=== PATIENT | male | born 1960 | race African-American/Black ===

== ENCOUNTER 2020-05-30 18:30 | Emergency (ER) | payer OTHER ==
[~2020-05-30] VITALS: Ht 180.3 cm; Wt 95.3 kg
[~2020-05-30 18:30] MED LIST: FLEXERIL PO; NAPROSYN500 MG PO; NOHOMEMEDICATIONS; NORCO 5-325 TA1 EACH PO
[2020-05-30 20:15] LABS: ABSOLUTE NEUTROPHILS 6.1 thou/uL (1.4-8.2); BASOPHILS 0.7 % (0.0-2.0); EOSINOPHILS 3.7 % (0.0-3.0); HEMATOCRIT 39.7 % (42.0-52.0); HEMOGLOBIN 12.9 gm/dL (14.0-18.0); LYMPHOCYTES 29.2 % (24.0-44.0); MCH 28.7 pg (26.0-34.0); MCHC 32.3 g/dL (28.0-37.0); MCV 88.7 fL (80.0-100.0); MONOCYTES 9.6 % (1.0-8.0); PLATELET COUNT 312 thou/uL (150-400); POLYS 56.8 % (36.0-66.0); RBC 4.48 mil/uL (4.50-6.00); RDW 13.9 % (10.5-14.5); WBC 10.7 thou/uL (4.0-11.0)
[2020-05-30 20:35] LABS: CALCIUM 8.8 mg/dL (8.5-10.1); POTASSIUM 3.8 mmol/L (3.5-5.1)
[2020-05-30 20:49] VITALS: BP 147/85
[2020-05-30] MEDS ORDERED: PROAIR HFA8.5 GM INH (20:49)
--- NOTE | 2020-05-31 07:35 | EKG ---
[facility] [place] [address] ELECTROCARDIOGRAM REPORT Name: SLY KUO Room #: DEP [facility]#: [id number] Admission: 05/30/20 Attend Phys: Discharge: 05/30/20 Date of : 64 Report #: [id number] THIS REPORT FOR: cc: RUBENS - Dilma family physician/PCP RUBENS - Dilma family physician/PCP Bjorn Estes MD [facility] ~ THIS REPORT FOR: //name// [facility] ED Test Date: 2020-05-30 Test Time: 20:40:26 Pat Name: SLY KUO Department: Room: Gender: [facility] Shift Lead: wiley hernández : 1960 Requested By: Harry Frausto Order Number: [id number] MD: Bjorn Estes Measurements Intervals [place] Rate: 71 P: 68 DE: 180 QRS: 69 QRSD: 95 T: 45 QT: 368 QTc: 400 Interpretive Statements Sinus rhythm Q V1 only No previous ECG available for comparison Electronically Signed On 05-31-2020 7:35:14 CDT by Bjorn Estes [email or web address] <ELECTRONICALLY SIGNED> By: Bjorn Estes MD, FACC 05/31/20734 39 39 Bjorn Estes MD, FACC /EPI
== END 2020-05-30 21:00 | disposition home or self-care (01) ==
LOC: ER 18:30
PROVIDERS: Emergency Medicine
DX: R42 Dizziness and giddiness (principal); R51.9 Headache, unspecified; M54.9 Dorsalgia, unspecified; I10 Essential (primary) hypertension; J45.909 Unspecified asthma, uncomplicated; Z79.899 Other long term (current) drug therapy; Z88.0 Allergy status to penicillin; V89.2XXA Person injured in unspecified motor-vehicle accident, traffic, initial encounter; Y93.89 Activity, other specified; Y92.488 Other paved roadways as the place of occurrence of the external cause; Y99.8 Other external cause status